=== PATIENT | female | born 1965 | race African-American/Black ===

== ENCOUNTER 2021-08-27 11:24 | Inpatient (IN) | payer OTHER, MEDICAID ==
[~2021-08-27] VITALS: Ht 162.6 cm; Wt 61.2 kg
[2021-08-27] MEDS ORDERED: CLINDAMYCIN 600 MG in DEXTROSE 5% WATER 50 ML IV ONE (13:15)
[2021-08-27] MEDS ORDERED: VANCOMYCIN 1G PREMIX 200 ML IV ONE (13:15)
[2021-08-27] MEDS ORDERED: SODIUM CHLORIDE 0.9% 1000ML BAG (SEPSIS BOLUS) IV ONE (13:15)
[2021-08-27] MEDS ORDERED: CLINDAMYCIN 600MG PREMIX 50 ML IV SCH (13:30)
[2021-08-27 14:01] LABS: HEMATOCRIT. 25.8 % (36.0-48.0); HEMOGLOBIN. 8.2 g/dL (12.0-16.0); MEAN CORPUSCULAR HEMOGLOBIN 30.1 pg (28.0-32.0); MEAN CORPUSCULAR VOLUME 95.2 fL (81.0-99.0); MEAN PLATELET VOLUME 8.6 fl (7.4-10.4); PLATELET 354 x1000/uL (130-400); RED BLOOD CELL COUNT 2.71 mill/uL (4.2-5.4); RED CELL DISTRIBUTION WIDTH 16.2 % (11.6-14.6)
[2021-08-27 14:07] LABS: CHLORIDE 95 mEq/L (98-107)
[2021-08-27 14:23] LABS: PLATELET ESTIMATE NORMAL
[2021-08-27] MEDS ORDERED: VANCOMYCIN 1,000 MG in DEXT 5% WATER 250 ML IV NR (15:00)
[2021-08-27] MEDS ORDERED: VANCOMYCIN 1GM PMX (XELLIA) 200 ML IV NR (15:00)
[2021-08-27] MEDS: CEFEPIME 2,000 MG in DEXT 5% WATER 100 ML IV SCH (15:44)
[2021-08-27] MEDS ORDERED: MAGNESIUM/ALUMINUM HYDROXIDE/SIMETHICONE 30ML UDC PO PRN (16:15)
[2021-08-27] MEDS ORDERED: ACETAMINOPHEN 325MG TABLET PO PRN (16:15)
[2021-08-27] MEDS ORDERED: IPRATROPIUM/ALBUTEROL 0.5-3(2.5)MG/3ML NEB NEB PRN (16:15)
[2021-08-27] MEDS ORDERED: ONDANSETRON HCL 4MG/2ML INJ IV PRN (16:15)
[2021-08-27] MEDS ORDERED: DOCUSATE SODIUM 100MG CAPSULE PO PRN (16:15)
[2021-08-27] MEDS ORDERED: GUAIFENESIN 200MG/10ML SUGAR FREE UDC PO PRN (16:15)
[2021-08-27] MEDS ORDERED: NITROGLYCERIN 0.4MG TABLET SL SL PRN (16:15)
[2021-08-27] MEDS ORDERED: CLONIDINE 0.1MG TABLET PO PRN (16:15)
[2021-08-27] MEDS ORDERED: SODIUM CHLORIDE 0.9% 1000ML BAG (SEPSIS BOLUS) IV NR (16:18)
[2021-08-27] MEDS: ACETAMINOPHEN 325MG TABLET PO PRN (16:43)
[2021-08-27] MEDS: BLOOD SUGAR DIAGNOSTIC STRIP TEST SCH ×2 (17:00→21:26)
[2021-08-27] MEDS ORDERED: SEVELAMER CARBONATE 800 MG TABLET PO SCH (17:00)
[2021-08-27] MEDS ORDERED: ENOXAPARIN 30MG/0.3ML SYR SUBCUT SCH (17:00)
[2021-08-27 18:08] LABS: FOLIC ACID (FOLATE) SERUM >20 ng/mL ng/mL (>5.38)
[2021-08-27] MEDS ORDERED: NOREPINEPHRINE 8MG/250ML PMX 250 ML IV PRN (18:15)
[2021-08-27 18:20] LABS: VITAMIN B12 SERUM >2000 pg/mL pg/mL (211-911)
[2021-08-27] MEDS ORDERED: NOREPINEPHRINE 8 MG in DEXTROSE 5% WATER 250 ML IV PRN (18:30)
[2021-08-27] MEDS: INSULIN LISPRO 100 UNITS/ML SUBCUT SCH ×2 (18:32→21:42)
[2021-08-27] MEDS ORDERED: NOREPINEPHRINE 8 MG in SODIUM CHLORIDE 0.9% 242 ML IV PRN (18:33)
[2021-08-27] MEDS: MEROPENEM 500 MG in SODIUM CHLORIDE 0.9% 50 ML IV SCH (18:42)
[2021-08-27] MEDS: SODIUM CHLORIDE 0.9% 1,000 ML IV SCH (19:10)
[2021-08-27] MEDS ORDERED: ZOLPIDEM TARTRATE 5MG TABLET PO PRN (20:00)
[2021-08-27] MEDS ORDERED: ASCORBIC ACID 500 MG TABLET PO SCH (21:00)
[2021-08-27] MEDS: EPOETIN ALFA-EPBX 4,000 UNIT/ML VIAL SUBCUT SCH (21:38)
[2021-08-27] MEDS: FAMOTIDINE 20MG TABLET PO SCH (21:39)
[2021-08-27] MEDS: TRAMADOL 50MG TABLET PO PRN (21:39)
[2021-08-27] MEDS: INSULIN GLARGINE UD 100 UNITS/ML SYR SUBCUT SCH (21:41)
[2021-08-27 22:05] LABS: BETA HYDROXYBUTYRATE 0.1 mMol/L (0.0-0.3)
[2021-08-27 22:06] LABS: CREATINE KINASE 43 IU/L (26-192)
[2021-08-27 22:07] LABS: CREATINE KINASE MB FRACTION 5.1 ng/mL (0.5-3.6); T4 FREE 0.53 ng/dL (0.76-1.46)
[2021-08-28] VITALS (12 sets, daily range): BP systolic 111–155; BP diastolic 65–85
[2021-08-28] MEDS: CEFEPIME 2,000 MG in DEXT 5% WATER 100 ML IV SCH (01:57)
[2021-08-28 05:34] LABS: CHLORIDE 97 mEq/L (98-107)
[2021-08-28 05:42] LABS: PHOSPHORUS 6.8 mg/dL (2.5-4.9)
[2021-08-28 05:46] LABS: CREATINE KINASE 45 IU/L (26-192)
[2021-08-28 05:47] LABS: CREATINE KINASE MB FRACTION 6.3 ng/mL (0.5-3.6)
[2021-08-28 05:52] LABS: BASOPHILS % 0.3 % (0.0-2.0); EOSINOPHILS % 0.1 % (0.0-5.0); HEMATOCRIT. 29.4 % (36.0-48.0); HEMOGLOBIN. 9.5 g/dL (12.0-16.0); LYMPHOCYTES % 8.4 % (20.0-50.0); MEAN CORPUSCULAR HEMOGLOBIN 30.5 pg (28.0-32.0); MEAN CORPUSCULAR VOLUME 94.5 fL (81.0-99.0); MEAN PLATELET VOLUME 8.5 fl (7.4-10.4); MONOCYTES % 3.4 % (2.0-8.0); NEUTROPHILS % 87.8 % (40.0-76.0); PLATELET 443 x1000/uL (130-400); RED BLOOD CELL COUNT 3.11 mill/uL (4.2-5.4); RED CELL DISTRIBUTION WIDTH 16.2 % (11.6-14.6)
[2021-08-28] MEDS: TRAMADOL 50MG TABLET PO PRN (06:08)
[2021-08-28] MEDS: MEROPENEM 500 MG in SODIUM CHLORIDE 0.9% 50 ML IV SCH ×2 (06:55→23:51)
[2021-08-28] MEDS: INSULIN LISPRO 100 UNITS/ML SUBCUT SCH ×3 (07:00→23:52)
[2021-08-28] MEDS: BLOOD SUGAR DIAGNOSTIC STRIP TEST SCH ×3 (07:10→23:46)
[2021-08-28] MEDS: SODIUM CHLORIDE 0.9% 1,000 ML IV SCH (09:00)
[2021-08-28] MEDS: ACETAMINOPHEN 325MG TABLET PO PRN (09:04)
[2021-08-28] MEDS: CHOLECALCIFEROL (D3) 1000 UNIT TABLET PO SCH (09:05)
[2021-08-28] MEDS: ZINC SULFATE 220 MG ( 50 ) CAPSULE PO SCH (09:06)
[2021-08-28] MEDS: FOLIC ACID/VITAMIN B COMP W-C TABLET PO SCH (09:06)
[2021-08-28] MEDS ORDERED: LIDOCAINE HCL 1% 20ML VIAL (Pyxis) INJ INFIL NR (10:00)
[2021-08-28] MEDS ORDERED: BUPIVACAINE HCL/PF 0.25% (2.5MG/ML) 10ML INFIL NR (10:00)
[2021-08-28] MEDS ORDERED: LORAZEPAM 2MG/ML CPJ IV NR (12:45)
[2021-08-28] MEDS ORDERED: HALOPERIDOL LACTATE 5MG/ML VIAL IM PRN (12:45)
[2021-08-28] MEDS: ENOXAPARIN 60MG/0.6ML SYR SUBCUT SCH (12:47)
[2021-08-28] MEDS: FAMOTIDINE 20MG TABLET PO SCH (12:48)
[2021-08-28] MEDS ORDERED: LIDOCAINE HCL 1% 20ML VIAL (Pyxis) INJ ONE (14:39)
[2021-08-28] MEDS ORDERED: BACITRACIN 15GM TUBE TOP ONE (14:39)
[2021-08-28] MEDS ORDERED: BUPIVACAINE HCL/PF 0.5% (5MG/ML) 10ML ONE (14:39)
[2021-08-28] MEDS ORDERED: VANCOMYCIN HCL 1 GM/VIAL ONE (14:40)
[2021-08-28] MEDS ORDERED: POLYMYXIN B SULFATE 500000 UNITS/VIAL ONE (14:40)
[2021-08-28] MEDS ORDERED: CALCIUM GLUCONATE 1,000 MG in DEXT 5% WATER 90 ML IV ONE (14:45)
[2021-08-28] MEDS ORDERED: PHENYLEPHRINE 50 MG in DEXTROSE 5% WATER 250 ML IV PRN (14:45)
[2021-08-28] MEDS ORDERED: ROCURONIUM BROMIDE 10MG/ML VIAL 5ML IV ONE (14:55)
[2021-08-28] MEDS ORDERED: FENTANYL CITRATE/PF 50MCG/ML 2ML VIAL ONE (14:55)
[2021-08-28] MEDS ORDERED: NEOSTIGMINE METHYLSULFATE 1MG/ML 10 ML VIAL ONE (14:56)
[2021-08-28] MEDS ORDERED: PROPOFOL 200MG/20ML VIAL IV ONE (14:56)
[2021-08-28] MEDS ORDERED: MIDAZOLAM HCL 2 MG/2 ML VIAL ONE (14:56)
[2021-08-28] MEDS ORDERED: GLYCOPYRROLATE 0.2 MG/ML 2ML VIAL ONE (14:56)
[2021-08-28] MEDS ORDERED: PHENYLEPHRINE 100 MG in DEXT 5% WATER 250 ML IV PRN (15:00)
[2021-08-28] MEDS ORDERED: CALCIUM GLUCONATE 1GM PREMIX 50 ML IV NR (15:00)
[2021-08-28] MEDS ORDERED: ALBUMIN HUMAN 12.5G/250ML (5%) IV ONE (15:01)
[2021-08-28] MEDS ORDERED: DEXAMETHASONE 4MG/ML 1ML VIAL ONE (15:03)
[2021-08-28] MEDS ORDERED: ONDANSETRON HCL 4MG/2ML INJ ONE (15:03)
[2021-08-28 15:55] LABS: BASOPHILS % 0.1 % (0.0-2.0); EOSINOPHILS % 0.2 % (0.0-5.0); HEMATOCRIT. 26.8 % (36.0-48.0); HEMOGLOBIN. 8.6 g/dL (12.0-16.0); LYMPHOCYTES % 9.4 % (20.0-50.0); MEAN CORPUSCULAR HEMOGLOBIN 30.5 pg (28.0-32.0); MEAN CORPUSCULAR VOLUME 94.6 fL (81.0-99.0); MEAN PLATELET VOLUME 8.3 fl (7.4-10.4); NEUTROPHILS % 87.3 % (40.0-76.0); PLATELET 449 x1000/uL (130-400); RED BLOOD CELL COUNT 2.83 mill/uL (4.2-5.4); RED CELL DISTRIBUTION WIDTH 15.9 % (11.6-14.6)
[2021-08-28 15:59] LABS: INR 1.2; PARTIAL THROMBOPLASTIN TIME 45.8 sec (23.4-31.0); PROTHROMBIN TIME 12.4 sec (9.6-11.0)
[2021-08-28] MEDS ORDERED: PROPOFOL 10MG/ML 100ML 100 ML IV ONE (15:59)
[2021-08-28] MEDS ORDERED: LEVOTHYROXINE SODIUM 100 MCG/ VIAL IV SCH (16:00)
[2021-08-28] MEDS ORDERED: HYDROMORPHONE HCL/PF 2MG/ML CPJ IV PRN (16:15)
[2021-08-28] MEDS ORDERED: LABETALOL 5MG/ML SYR 20 MG/4 ML SYRINGE IV PRN (16:15)
[2021-08-28] MEDS ORDERED: MEPERIDINE HCL/PF 25MG/ML CPJ IV PRN (16:15)
[2021-08-28] MEDS ORDERED: ONDANSETRON HCL 4MG/2ML INJ IV PRN (16:15)
[2021-08-28] MEDS: CALCIUM ACETATE 667MG CAPSULE PO SCH (17:00)
[2021-08-28] MEDS ORDERED: PROPOFOL 10MG/ML 100ML 100 ML IV PRN (17:15)
[2021-08-28] MEDS ORDERED: FENTANYL CITRATE/PF 2,500 MCG in SODIUM CHLORIDE 0.9% 200 ML IV PRN (17:30)
[2021-08-28 17:34] LABS: BG DEOXYHEMOGLOBIN 0.3 % (0.0-5.0); BG FRACTION INSPIRED OXYGEN 100; BG HCO3 ACT 14.2 mmol/L (22.0-26.0); BG METHEMOGLOBIN 0.2 % (0.0-1.5); BG OXYGEN SATURATION 99.7 % (92.0-98.5); BG OXYHEMOGLOBIN 98.5 % (94.0-97.0); BG PCO2 33.1 mmHg (35.0-45.0); BG PO2 421.8 mmHg (75.0-100.0); BG SAMPLE SITE ALINE; BG TOTAL HEMOGLOBIN 8.2 g/dL (12.0-18.0); BG VENT MODE VENT - AC
[2021-08-28] MEDS ORDERED: SODIUM BICARBONATE 8.4% 1 MEQ/ML 50ML SYR IV NR (18:15)
[2021-08-28] MEDS ORDERED: SODIUM BICARBONATE 8.4% 1 MEQ/ML 50ML SYR IV ONE (18:17)
[2021-08-28 20:33] LABS: BG BASE EXCESS -10.3 mmol/L (-2.0-2.0); BG CARBOXYHEMOGLOBIN 1.4 % (0.5-1.5); BG DEOXYHEMOGLOBIN 0.9 % (0.0-5.0); BG FRACTION INSPIRED OXYGEN 65; BG HCO3 ACT 15.1 mmol/L (22.0-26.0); BG METHEMOGLOBIN 0.3 % (0.0-1.5); BG OXYGEN SATURATION 99.1 % (92.0-98.5); BG OXYHEMOGLOBIN 97.4 % (94.0-97.0); BG PCO2 31.1 mmHg (35.0-45.0); BG PH 7.304 (7.350-7.450); BG PO2 254.6 mmHg (75.0-100.0); BG SAMPLE SITE ALINE; BG TOTAL HEMOGLOBIN 6.8 g/dL (12.0-18.0); BG VENT MODE VENT - AC
[2021-08-28] MEDS: SODIUM BICARBONATE 100 MEQ in DEXT 5%/0.45% NACL 1000ML 1,000 ML IV SCH (21:25)
[2021-08-29] VITALS (107 sets, daily range): BP systolic 53–167; BP diastolic 34–103
[2021-08-29] MEDS ORDERED: FAMOTIDINE 20MG/2ML VIAL IV SCH (00:30)
[2021-08-29] MEDS: PROPOFOL 10MG/ML 100ML 100 ML IV PRN ×2 (01:39→10:44)
[2021-08-29] MEDS: INSULIN GLARGINE UD 100 UNITS/ML SYR SUBCUT SCH (01:59)
[2021-08-29 05:30] LABS: CHLORIDE 100 mEq/L (98-107); MEAN CORPUSCULAR HEMOGLOBIN 30.5 pg (28.0-32.0); MEAN CORPUSCULAR VOLUME 93.3 fL (81.0-99.0); MEAN PLATELET VOLUME 8.2 fl (7.4-10.4); PLATELET 309 x1000/uL (130-400); RED BLOOD CELL COUNT 1.96 mill/uL (4.2-5.4); RED CELL DISTRIBUTION WIDTH 15.8 % (11.6-14.6)
[2021-08-29 05:39] LABS: PHOSPHORUS 8.5 mg/dL (2.5-4.9)
[2021-08-29 06:20] LABS: HEMATOCRIT. 18.3 % (36.0-48.0)
[2021-08-29] MEDS: BLOOD SUGAR DIAGNOSTIC STRIP TEST SCH ×3 (06:24→17:36)
[2021-08-29] MEDS: CALCIUM ACETATE 667MG CAPSULE PO SCH ×3 (06:25→16:59)
[2021-08-29] MEDS: MEROPENEM 500 MG in SODIUM CHLORIDE 0.9% 50 ML IV SCH (06:28)
[2021-08-29] MEDS: INSULIN LISPRO 100 UNITS/ML SUBCUT SCH ×3 (06:29→17:40)
[2021-08-29 08:13] LABS: INR 1.2; PROTHROMBIN TIME 12.5 sec (9.6-11.0)
[2021-08-29] MEDS: ENOXAPARIN 60MG/0.6ML SYR SUBCUT SCH (09:00)
[2021-08-29 09:27] LABS: BG BASE EXCESS -7.9 mmol/L (-2.0-2.0); BG CARBOXYHEMOGLOBIN 2.2 % (0.5-1.5); BG DEOXYHEMOGLOBIN 0.5 % (0.0-5.0); BG FRACTION INSPIRED OXYGEN 50; BG HCO3 ACT 17.2 mmol/L (22.0-26.0); BG METHEMOGLOBIN 0.3 % (0.0-1.5); BG OXYGEN SATURATION 99.5 % (92.0-98.5); BG PCO2 32.9 mmHg (35.0-45.0); BG PH 7.336 (7.350-7.450); BG PO2 277.7 mmHg (75.0-100.0); BG TOTAL HEMOGLOBIN 6.2 g/dL (12.0-18.0); BG VENT MODE VENT - AC
[2021-08-29] MEDS ORDERED: NALOXONE HCL 0.4MG/ML VIAL IV PRN (09:30)
[2021-08-29] MEDS ORDERED: SILVER NITRATE APPLICATOR STICK TOP SCH (10:30)
[2021-08-29 12:47] LABS: PLATELET ESTIMATE NORMAL
[2021-08-29] MEDS: LEVOTHYROXINE SODIUM 25MCG TABLET PO SCH (13:08)
[2021-08-29] MEDS: ZINC SULFATE 220 MG ( 50 ) CAPSULE PO SCH (13:09)
[2021-08-29] MEDS: CHOLECALCIFEROL (D3) 1000 UNIT TABLET PO SCH (13:09)
[2021-08-29] MEDS: FOLIC ACID/VITAMIN B COMP W-C TABLET PO SCH (13:09)
[2021-08-29] MEDS: SODIUM BICARBONATE 100 MEQ in DEXT 5%/0.45% NACL 1000ML 1,000 ML IV SCH ×2 (13:10→21:20)
[2021-08-29 17:29] LABS: HEMATOCRIT 27.7 % (36.0-48.0); HEMOGLOBIN 9.2 g/dL (12.0-16.0)
[2021-08-29] MEDS ORDERED: VANCOMYCIN 750MG PREMIX 150 ML IV NR (18:00)
[2021-08-29] MEDS ORDERED: INSULIN GLARGINE UD 100 UNITS/ML SYR SUBCUT SCH (22:00)
[2021-08-29] MEDS ORDERED: NOREPINEPHRINE 8 MG in DEXT 5% WATER 242 ML IV PRN (23:00)
[2021-08-29] MEDS: EPOETIN ALFA-EPBX 4,000 UNIT/ML VIAL SUBCUT SCH (23:52)
[2021-08-30] VITALS (98 sets, daily range): BP systolic 74–176; BP diastolic 26–139
[2021-08-30] MEDS: BLOOD SUGAR DIAGNOSTIC STRIP TEST SCH ×4 (00:03→17:39)
[2021-08-30] MEDS: INSULIN LISPRO 100 UNITS/ML SUBCUT SCH ×4 (00:03→17:39)
[2021-08-30 04:46] LABS: HEMATOCRIT. 25.6 % (36.0-48.0); HEMOGLOBIN. 8.7 g/dL (12.0-16.0); MEAN CORPUSCULAR HEMOGLOBIN 29.9 pg (28.0-32.0); MEAN CORPUSCULAR VOLUME 87.7 fL (81.0-99.0); MEAN PLATELET VOLUME 8.4 fl (7.4-10.4); PLATELET 279 x1000/uL (130-400); RED BLOOD CELL COUNT 2.92 mill/uL (4.2-5.4); RED CELL DISTRIBUTION WIDTH 16.3 % (11.6-14.6)
[2021-08-30 05:07] LABS: CHLORIDE 114 mEq/L (98-107)
[2021-08-30] MEDS ORDERED: POTASSIUM CHLORIDE 20MEQ/PACKET PO SCH (06:05)
[2021-08-30] MEDS ORDERED: CALCIUM GLUCONATE 1GM PREMIX 50 ML IV SCH (06:15)
[2021-08-30] MEDS ORDERED: KCL 20MEQ/100ML PREMIX 100 ML IV SCH ×2 (06:15→07:15)
[2021-08-30] MEDS: CALCIUM ACETATE 667MG CAPSULE PO SCH ×3 (06:30→16:15)
[2021-08-30] MEDS: LEVOTHYROXINE SODIUM 25MCG TABLET PO SCH (06:30)
[2021-08-30] MEDS: MEROPENEM 500 MG in SODIUM CHLORIDE 0.9% 50 ML IV SCH (06:31)
[2021-08-30] MEDS: PROPOFOL 10MG/ML 100ML 100 ML IV PRN ×2 (08:11→23:44)
[2021-08-30] MEDS ORDERED: FAMOTIDINE 20MG/2ML VIAL IV SCH (09:00)
[2021-08-30] MEDS ORDERED: FAMOTIDINE 20MG TABLET NG SCH (09:00)
[2021-08-30] MEDS: ZINC SULFATE 220 MG ( 50 ) CAPSULE PO SCH (09:15)
[2021-08-30] MEDS: DEXT 5%/0.45% NACL 1000ML 1,000 ML IV SCH (09:15)
[2021-08-30] MEDS: FOLIC ACID/VITAMIN B COMP W-C TABLET PO SCH (09:15)
[2021-08-30 09:28] LABS: BG BASE EXCESS -2.9 mmol/L (-2.0-2.0); BG CARBOXYHEMOGLOBIN 0.7 % (0.5-1.5); BG DEOXYHEMOGLOBIN 1.1 % (0.0-5.0); BG FRACTION INSPIRED OXYGEN 40; BG HCO3 ACT 20.5 mmol/L (22.0-26.0); BG OXYGEN SATURATION 98.9 % (92.0-98.5); BG OXYHEMOGLOBIN 98.2 % (94.0-97.0); BG PCO2 29.6 mmHg (35.0-45.0); BG PH 7.458 (7.350-7.450); BG PO2 222.2 mmHg (75.0-100.0); BG SAMPLE SITE ALINE; BG TOTAL HEMOGLOBIN 7.9 g/dL (12.0-18.0); BG VENT MODE VENT - AC
[2021-08-30] MEDS: CHOLECALCIFEROL (D3) 1000 UNIT TABLET PO SCH (09:52)
[2021-08-30] MEDS ORDERED: CALCITRIOL 0.25MCG CAPSULE PO SCH (10:00)
[2021-08-30] MEDS: DEXTROSE 50% WATER 50ML SYRINGE IV PRN ×2 (11:37→17:39)
[2021-08-30] MEDS: CALCITRIOL 1 MCG/ML ORAL SYR NG SCH (11:38)
[2021-08-30 14:00] LABS: PLATELET ESTIMATE NORMAL
[2021-08-30 14:47] LABS: BG BASE EXCESS -3.5 mmol/L (-2.0-2.0); BG CARBOXYHEMOGLOBIN 0.3 % (0.5-1.5); BG DEOXYHEMOGLOBIN 1.1 % (0.0-5.0); BG FRACTION INSPIRED OXYGEN 30; BG HCO3 ACT 21.3 mmol/L (22.0-26.0); BG METHEMOGLOBIN 0.3 % (0.0-1.5); BG OXYGEN SATURATION 98.9 % (92.0-98.5); BG OXYHEMOGLOBIN 98.3 % (94.0-97.0); BG PCO2 37.4 mmHg (35.0-45.0); BG PH 7.374 (7.350-7.450); BG PO2 191.4 mmHg (75.0-100.0); BG SAMPLE SITE RIGHT RADIAL; BG TOTAL HEMOGLOBIN 9.4 g/dL (12.0-18.0); BG VENT MODE VENT - SIMV
[2021-08-30] MEDS: ENOXAPARIN 60MG/0.6ML SYR SUBCUT SCH (16:15)
[2021-08-30] MEDS ORDERED: SODIUM BICARBONATE 8.4% 1 MEQ/ML 50ML SYR IV NR (18:00)
[2021-08-30] MEDS ORDERED: INSULIN GLARGINE UD 100 UNITS/ML SYR SUBCUT SCH (22:00)
[2021-08-30] MEDS ORDERED: FAMOTIDINE 20MG TABLET PO NR (23:00)
[2021-08-31] VITALS (85 sets, daily range): BP systolic 82–201; BP diastolic 36–150
[2021-08-31] MEDS: BLOOD SUGAR DIAGNOSTIC STRIP TEST SCH ×4 (00:22→18:09)
[2021-08-31 05:56] LABS: BASOPHILS % 0.3 % (0.0-2.0); EOSINOPHILS % 2.2 % (0.0-5.0); HEMATOCRIT. 24.4 % (36.0-48.0); HEMOGLOBIN. 8.3 g/dL (12.0-16.0); LYMPHOCYTES % 13.2 % (20.0-50.0); MEAN CORPUSCULAR HEMOGLOBIN 29.9 pg (28.0-32.0); MEAN CORPUSCULAR VOLUME 88.6 fL (81.0-99.0); MEAN PLATELET VOLUME 8.9 fl (7.4-10.4); MONOCYTES % 5.4 % (2.0-8.0); NEUTROPHILS % 78.9 % (40.0-76.0); PLATELET 272 x1000/uL (130-400); RED BLOOD CELL COUNT 2.76 mill/uL (4.2-5.4); RED CELL DISTRIBUTION WIDTH 17.1 % (11.6-14.6)
[2021-08-31] MEDS: CALCIUM ACETATE 667MG CAPSULE PO SCH ×3 (06:13→17:04)
[2021-08-31] MEDS: LEVOTHYROXINE SODIUM 25MCG TABLET PO SCH (06:13)
[2021-08-31] MEDS: INSULIN LISPRO 100 UNITS/ML SUBCUT SCH ×4 (06:15→18:00)
[2021-08-31] MEDS: DEXT 5%/0.45% NACL 1000ML 1,000 ML IV SCH (06:15)
[2021-08-31 06:23] LABS: PHOSPHORUS 5.3 mg/dL (2.5-4.9)
[2021-08-31] MEDS ORDERED: PROPOFOL 10MG/ML 100ML 100 ML IV PRN (06:45)
[2021-08-31] MEDS: FOLIC ACID/VITAMIN B COMP W-C TABLET PO SCH (08:05)
[2021-08-31] MEDS: ZINC SULFATE 220 MG ( 50 ) CAPSULE PO SCH (08:05)
[2021-08-31] MEDS: MEROPENEM 500 MG in SODIUM CHLORIDE 0.9% 50 ML IV SCH (08:05)
[2021-08-31] MEDS: CALCITRIOL 1 MCG/ML ORAL SYR NG SCH (08:05)
[2021-08-31] MEDS: CHOLECALCIFEROL (D3) 1000 UNIT TABLET PO SCH (08:05)
[2021-08-31] MEDS: FAMOTIDINE 20MG TABLET NG SCH (08:05)
[2021-08-31] MEDS ORDERED: CALCIUM GLUCONATE 1,000 MG in DEXT 5% WATER 90 ML IV ONE (08:30)
[2021-08-31 08:39] LABS: BG BASE EXCESS -0.1 mmol/L (-2.0-2.0); BG CARBOXYHEMOGLOBIN 0.7 % (0.5-1.5); BG DEOXYHEMOGLOBIN 1.3 % (0.0-5.0); BG FRACTION INSPIRED OXYGEN 30; BG HCO3 ACT 24.6 mmol/L (22.0-26.0); BG METHEMOGLOBIN 0.3 % (0.0-1.5); BG OXYGEN SATURATION 98.7 % (92.0-98.5); BG OXYHEMOGLOBIN 97.7 % (94.0-97.0); BG PCO2 40.7 mmHg (35.0-45.0); BG PO2 158.9 mmHg (75.0-100.0); BG SAMPLE SITE RIGHT BRACHIAL; BG TOTAL HEMOGLOBIN 8.9 g/dL (12.0-18.0); BG TOTAL RESPIRATORY RATE 14 b/min; BG VENT MODE VENT - AC
[2021-08-31] MEDS ORDERED: CALCIUM GLUCONATE 1GM PREMIX 50 ML IV SCH (09:30)
[2021-08-31 13:09] LABS: BG BASE EXCESS -0.2 mmol/L (-2.0-2.0); BG CARBOXYHEMOGLOBIN 0.6 % (0.5-1.5); BG DEOXYHEMOGLOBIN 2.5 % (0.0-5.0); BG FRACTION INSPIRED OXYGEN 30; BG HCO3 ACT 22.9 mmol/L (22.0-26.0); BG METHEMOGLOBIN 0.3 % (0.0-1.5); BG OXYGEN SATURATION 97.5 % (92.0-98.5); BG OXYHEMOGLOBIN 96.6 % (94.0-97.0); BG PCO2 32.1 mmHg (35.0-45.0); BG PH 7.472 (7.350-7.450); BG PO2 102.6 mmHg (75.0-100.0); BG SAMPLE SITE RIGHT BRACHIAL; BG TOTAL HEMOGLOBIN 10.2 g/dL (12.0-18.0); BG VENT MODE VENT - CPAP
[2021-08-31 15:31] LABS: BG BASE EXCESS -0.8 mmol/L (-2.0-2.0); BG CARBOXYHEMOGLOBIN 0.2 % (0.5-1.5); BG DEOXYHEMOGLOBIN 1.1 % (0.0-5.0); BG FRACTION INSPIRED OXYGEN 32; BG HCO3 ACT 22.6 mmol/L (22.0-26.0); BG METHEMOGLOBIN 0.1 % (0.0-1.5); BG OXYGEN SATURATION 98.9 % (92.0-98.5); BG OXYHEMOGLOBIN 98.6 % (94.0-97.0); BG PCO2 32.8 mmHg (35.0-45.0); BG PH 7.457 (7.350-7.450); BG PO2 177.3 mmHg (75.0-100.0); BG SAMPLE SITE RIGHT BRACHIAL; BG TOTAL HEMOGLOBIN 9.8 g/dL (12.0-18.0); BG VENT MODE NASAL CANNULA
[2021-08-31] MEDS: ENOXAPARIN 60MG/0.6ML SYR SUBCUT SCH (17:04)
[2021-08-31] MEDS: INSULIN GLARGINE UD 100 UNITS/ML SYR SUBCUT SCH (23:00)
[2021-09-01] VITALS (44 sets, daily range): BP systolic 119–167; BP diastolic 58–103
[2021-09-01] MEDS: BLOOD SUGAR DIAGNOSTIC STRIP TEST SCH ×5 (00:11→23:39)
[2021-09-01] MEDS: INSULIN LISPRO 100 UNITS/ML SUBCUT SCH ×5 (00:19→23:50)
[2021-09-01 06:17] LABS: BASOPHILS % 0.5 % (0.0-2.0); HEMOGLOBIN. 8.6 g/dL (12.0-16.0); LYMPHOCYTES % 13.1 % (20.0-50.0); MEAN CORPUSCULAR HEMOGLOBIN 29.7 pg (28.0-32.0); MEAN PLATELET VOLUME 8.8 fl (7.4-10.4); MONOCYTES % 6.3 % (2.0-8.0); NEUTROPHILS % 79.1 % (40.0-76.0); PLATELET 282 x1000/uL (130-400); RED BLOOD CELL COUNT 2.89 mill/uL (4.2-5.4); RED CELL DISTRIBUTION WIDTH 16.7 % (11.6-14.6)
[2021-09-01 06:45] LABS: PHOSPHORUS 5.5 mg/dL (2.5-4.9)
[2021-09-01] MEDS: LEVOTHYROXINE SODIUM 25MCG TABLET PO SCH (07:23)
[2021-09-01] MEDS: CALCIUM ACETATE 667MG CAPSULE PO SCH ×3 (07:23→16:56)
[2021-09-01] MEDS: MEROPENEM 500 MG in SODIUM CHLORIDE 0.9% 50 ML IV SCH (08:59)
[2021-09-01] MEDS: FOLIC ACID/VITAMIN B COMP W-C TABLET PO SCH (09:00)
[2021-09-01] MEDS: CHOLECALCIFEROL (D3) 1000 UNIT TABLET PO SCH (09:00)
[2021-09-01] MEDS: ZINC SULFATE 220 MG ( 50 ) CAPSULE PO SCH (09:01)
[2021-09-01] MEDS: FAMOTIDINE 20MG TABLET NG SCH (09:01)
[2021-09-01] MEDS: CALCITRIOL 1 MCG/ML ORAL SYR NG SCH (09:04)
[2021-09-01] MEDS: DEXTROSE 50% WATER 50ML SYRINGE IV PRN (11:47)
[2021-09-01] MEDS: CLOPIDOGREL 75MG TABLET PO SCH (11:48)
[2021-09-01] MEDS: ENOXAPARIN 60MG/0.6ML SYR SUBCUT SCH (16:56)
[2021-09-01] MEDS: EPOETIN ALFA-EPBX 4,000 UNIT/ML VIAL SUBCUT SCH (21:50)
[2021-09-01] MEDS: BACITRACIN 15GM TUBE TOP SCH (23:00)
[2021-09-01] MEDS: INSULIN GLARGINE UD 100 UNITS/ML SYR SUBCUT SCH (23:00)
[2021-09-02] VITALS (50 sets, daily range): BP systolic 98–165; BP diastolic 54–88
[2021-09-02] MEDS: INSULIN LISPRO 100 UNITS/ML SUBCUT SCH ×4 (06:00→23:15)
[2021-09-02 06:24] LABS: BASOPHILS % 0.3 % (0.0-2.0); EOSINOPHILS % 0.7 % (0.0-5.0); HEMATOCRIT. 25.3 % (36.0-48.0); HEMOGLOBIN. 8.2 g/dL (12.0-16.0); LYMPHOCYTES % 14.1 % (20.0-50.0); MEAN CORPUSCULAR HEMOGLOBIN 29.4 pg (28.0-32.0); MEAN PLATELET VOLUME 8.6 fl (7.4-10.4); MONOCYTES % 6.4 % (2.0-8.0); NEUTROPHILS % 78.5 % (40.0-76.0); PLATELET 292 x1000/uL (130-400); RED BLOOD CELL COUNT 2.81 mill/uL (4.2-5.4); RED CELL DISTRIBUTION WIDTH 17.3 % (11.6-14.6)
[2021-09-02] MEDS: BLOOD SUGAR DIAGNOSTIC STRIP TEST SCH ×4 (06:43→23:03)
[2021-09-02 06:45] LABS: CHLORIDE 100 mEq/L (98-107)
[2021-09-02] MEDS: CALCIUM ACETATE 667MG CAPSULE PO SCH (06:51)
[2021-09-02] MEDS: LEVOTHYROXINE SODIUM 25MCG TABLET PO SCH (06:51)
[2021-09-02 06:57] LABS: PHOSPHORUS 4.9 mg/dL (2.5-4.9)
[2021-09-02] MEDS: BACITRACIN 15GM TUBE TOP SCH ×2 (09:00→21:23)
[2021-09-02] MEDS: ZINC SULFATE 220 MG ( 50 ) CAPSULE PO SCH (09:13)
[2021-09-02] MEDS: CHOLECALCIFEROL (D3) 1000 UNIT TABLET PO SCH (09:13)
[2021-09-02] MEDS: CALCITRIOL 1 MCG/ML ORAL SYR NG SCH (09:14)
[2021-09-02] MEDS: FOLIC ACID/VITAMIN B COMP W-C TABLET PO SCH (09:14)
[2021-09-02] MEDS: CLOPIDOGREL 75MG TABLET PO SCH (09:14)
[2021-09-02] MEDS: FAMOTIDINE 20MG TABLET NG SCH (09:14)
[2021-09-02] MEDS: CALCIUM CARBONATE 500MG TABLET CHEW PO SCH ×2 (13:19→16:38)
[2021-09-02] MEDS: ENOXAPARIN 60MG/0.6ML SYR SUBCUT SCH (16:39)
[2021-09-02] MEDS ORDERED: MORPHINE SULFATE 2 MG/ML CPJ (NOT FOR IM USE) IV ONE (18:15)
[2021-09-02] MEDS ORDERED: FENTANYL 2500MCG/250ML PMX 250 ML IV PRN (18:15)
[2021-09-02] MEDS: EPOETIN ALFA-EPBX 4,000 UNIT/ML VIAL SUBCUT SCH (21:23)
[2021-09-02] MEDS: INSULIN GLARGINE UD 100 UNITS/ML SYR SUBCUT SCH (23:14)
[2021-09-03] VITALS (30 sets, daily range): BP systolic 114–155; BP diastolic 59–85
[2021-09-03] MEDS: INSULIN LISPRO 100 UNITS/ML SUBCUT SCH ×3 (05:39→17:54)
[2021-09-03] MEDS: BLOOD SUGAR DIAGNOSTIC STRIP TEST SCH ×3 (05:39→17:32)
[2021-09-03 05:50] LABS: BASOPHILS % 0.6 % (0.0-2.0); EOSINOPHILS % 1.6 % (0.0-5.0); HEMATOCRIT. 23.4 % (36.0-48.0); HEMOGLOBIN. 7.8 g/dL (12.0-16.0); LYMPHOCYTES % 19.1 % (20.0-50.0); MEAN CORPUSCULAR VOLUME 90.5 fL (81.0-99.0); MEAN PLATELET VOLUME 8.3 fl (7.4-10.4); MONOCYTES % 8.2 % (2.0-8.0); NEUTROPHILS % 70.5 % (40.0-76.0); PLATELET 252 x1000/uL (130-400); RED BLOOD CELL COUNT 2.58 mill/uL (4.2-5.4); RED CELL DISTRIBUTION WIDTH 16.6 % (11.6-14.6)
[2021-09-03 06:00] LABS: CHLORIDE 99 mEq/L (98-107)
[2021-09-03 06:08] LABS: PHOSPHORUS 4.7 mg/dL (2.5-4.9)
[2021-09-03] MEDS: LEVOTHYROXINE SODIUM 25MCG TABLET PO SCH (06:22)
[2021-09-03] MEDS: CALCIUM CARBONATE 500MG TABLET CHEW PO SCH ×4 (06:22→16:02)
[2021-09-03] MEDS: ZINC SULFATE 220 MG ( 50 ) CAPSULE PO SCH (08:21)
[2021-09-03] MEDS: CHOLECALCIFEROL (D3) 1000 UNIT TABLET PO SCH (08:21)
[2021-09-03] MEDS: CLOPIDOGREL 75MG TABLET PO SCH (08:21)
[2021-09-03] MEDS: FAMOTIDINE 20MG TABLET NG SCH (08:21)
[2021-09-03] MEDS: FOLIC ACID/VITAMIN B COMP W-C TABLET PO SCH (08:21)
[2021-09-03] MEDS: CALCITRIOL 1 MCG/ML ORAL SYR NG SCH (08:21)
[2021-09-03] MEDS: BACITRACIN 15GM TUBE TOP SCH ×2 (08:24→21:29)
[2021-09-03] MEDS: ACETAMINOPHEN 325MG TABLET PO PRN ×2 (10:03→15:58)
[2021-09-03] MEDS: SODIUM HYPOCHLORITE (0.25%) 480ML SOLUTION (HALF STRENGTH) TOP SCH (11:21)
[2021-09-03] MEDS ORDERED: IOHEXOL-350 100 ML BOTTLE ONE (15:22)
[2021-09-03] MEDS: ENOXAPARIN 60MG/0.6ML SYR SUBCUT SCH (15:59)
[2021-09-03] MEDS: INSULIN GLARGINE UD 100 UNITS/ML SYR SUBCUT SCH (21:36)
[2021-09-04] VITALS: BP 151/75
[2021-09-04] MEDS: ACETAMINOPHEN 325MG TABLET PO PRN ×2 (01:32→16:03)
[2021-09-04] MEDS: INSULIN LISPRO 100 UNITS/ML SUBCUT SCH ×5 (01:40→20:56)
[2021-09-04 04:00] VITALS: BP 119/54
[2021-09-04] MEDS: DEXTROSE 50% WATER 50ML SYRINGE IV PRN (05:31)
[2021-09-04] MEDS: BLOOD SUGAR DIAGNOSTIC STRIP TEST SCH ×5 (06:33→20:55)
[2021-09-04] MEDS: CALCIUM CARBONATE 500MG TABLET CHEW PO SCH ×3 (06:34→17:15)
[2021-09-04 07:46] LABS: BASOPHILS % 0.7 % (0.0-2.0); HEMATOCRIT. 24.8 % (36.0-48.0); HEMOGLOBIN. 8.2 g/dL (12.0-16.0); LYMPHOCYTES % 14.6 % (20.0-50.0); MEAN CORPUSCULAR VOLUME 90.5 fL (81.0-99.0); MEAN PLATELET VOLUME 8.4 fl (7.4-10.4); MONOCYTES % 7.7 % (2.0-8.0); PLATELET 287 x1000/uL (130-400); RED BLOOD CELL COUNT 2.74 mill/uL (4.2-5.4); RED CELL DISTRIBUTION WIDTH 16.6 % (11.6-14.6)
[2021-09-04 07:58] LABS: PHOSPHORUS 4.7 mg/dL (2.5-4.9)
[2021-09-04] MEDS: CALCITRIOL 1 MCG/ML ORAL SYR NG SCH (09:00)
[2021-09-04] MEDS: FOLIC ACID/VITAMIN B COMP W-C TABLET PO SCH (09:53)
[2021-09-04] MEDS: CHOLECALCIFEROL (D3) 1000 UNIT TABLET PO SCH (09:53)
[2021-09-04] MEDS: CLOPIDOGREL 75MG TABLET PO SCH (09:53)
[2021-09-04] MEDS: FAMOTIDINE 20MG TABLET NG SCH (09:53)
[2021-09-04] MEDS: ZINC SULFATE 220 MG ( 50 ) CAPSULE PO SCH (09:53)
[2021-09-04] MEDS: BACITRACIN 15GM TUBE TOP SCH ×2 (09:54→20:55)
[2021-09-04] MEDS: SODIUM HYPOCHLORITE (0.25%) 480ML SOLUTION (HALF STRENGTH) TOP SCH (09:54)
[2021-09-04] MEDS ORDERED: POTASSIUM CHLORIDE 20MEQ TABLET SR PO NR (11:00)
[2021-09-04] MEDS: LEVOTHYROXINE SODIUM 25MCG TABLET PO SCH (11:27)
[2021-09-04 12:00] VITALS: BP 173/83
[2021-09-04 16:00] VITALS: BP 139/71
[2021-09-04] MEDS: ENOXAPARIN 60MG/0.6ML SYR SUBCUT SCH (16:02)
[2021-09-04 20:00] VITALS: BP 145/79
[2021-09-04] MEDS: HYDROCODONE/ACETAMINOPHEN 5/325MG TABLET PO PRN (20:55)
[2021-09-04] MEDS: EPOETIN ALFA-EPBX 4,000 UNIT/ML VIAL SUBCUT SCH (20:55)
[2021-09-05] VITALS: BP 140/67
[2021-09-05 04:00] VITALS: BP 146/70
[2021-09-05] MEDS: HYDROCODONE/ACETAMINOPHEN 5/325MG TABLET PO PRN ×3 (04:40→18:23)
[2021-09-05] MEDS: CALCIUM CARBONATE 500MG TABLET CHEW PO SCH ×3 (06:27→17:35)
[2021-09-05] MEDS: LEVOTHYROXINE SODIUM 25MCG TABLET PO SCH (06:27)
[2021-09-05] MEDS: INSULIN LISPRO 100 UNITS/ML SUBCUT SCH ×4 (06:28→21:01)
[2021-09-05] MEDS: BLOOD SUGAR DIAGNOSTIC STRIP TEST SCH ×4 (06:29→21:02)
[2021-09-05 08:00] VITALS: BP 134/63
[2021-09-05 08:23] LABS: BASOPHILS % 0.7 % (0.0-2.0); EOSINOPHILS % 1.8 % (0.0-5.0); HEMOGLOBIN. 8.4 g/dL (12.0-16.0); LYMPHOCYTES % 19.9 % (20.0-50.0); MEAN CORPUSCULAR HEMOGLOBIN 30.4 pg (28.0-32.0); MEAN CORPUSCULAR VOLUME 90.9 fL (81.0-99.0); MEAN PLATELET VOLUME 8.2 fl (7.4-10.4); MONOCYTES % 8.4 % (2.0-8.0); NEUTROPHILS % 69.2 % (40.0-76.0); PLATELET 250 x1000/uL (130-400); RED BLOOD CELL COUNT 2.75 mill/uL (4.2-5.4)
[2021-09-05 08:57] LABS: PHOSPHORUS 4.7 mg/dL (2.5-4.9)
[2021-09-05] MEDS: CLOPIDOGREL 75MG TABLET PO SCH (09:53)
[2021-09-05] MEDS: FOLIC ACID/VITAMIN B COMP W-C TABLET PO SCH (09:53)
[2021-09-05] MEDS: ZINC SULFATE 220 MG ( 50 ) CAPSULE PO SCH (09:53)
[2021-09-05] MEDS: CHOLECALCIFEROL (D3) 1000 UNIT TABLET PO SCH (09:53)
[2021-09-05] MEDS: FAMOTIDINE 20MG TABLET NG SCH (09:54)
[2021-09-05] MEDS: BACITRACIN 15GM TUBE TOP SCH ×2 (09:57→21:02)
[2021-09-05] MEDS: SODIUM HYPOCHLORITE (0.25%) 480ML SOLUTION (HALF STRENGTH) TOP SCH (09:58)
[2021-09-05] MEDS: CALCITRIOL 1 MCG/ML ORAL SYR NG SCH (10:03)
[2021-09-05 12:00] VITALS: BP 126/68
[2021-09-05 16:00] VITALS: BP 124/70
[2021-09-05] MEDS: ENOXAPARIN 60MG/0.6ML SYR SUBCUT SCH (17:35)
[2021-09-05 20:00] VITALS: BP 110/68
[2021-09-06] VITALS: BP 114/45
[2021-09-06] MEDS: CALCIUM CARBONATE 500MG TABLET CHEW PO SCH ×3 (06:19→17:15)
[2021-09-06] MEDS: LEVOTHYROXINE SODIUM 25MCG TABLET PO SCH (06:19)
[2021-09-06] MEDS: BLOOD SUGAR DIAGNOSTIC STRIP TEST SCH ×4 (06:20→20:08)
[2021-09-06] MEDS: INSULIN LISPRO 100 UNITS/ML SUBCUT SCH ×4 (06:20→21:11)
[2021-09-06 07:55] LABS: BASOPHILS % 0.5 % (0.0-2.0); EOSINOPHILS % 0.7 % (0.0-5.0); HEMATOCRIT. 23.4 % (36.0-48.0); HEMOGLOBIN. 7.6 g/dL (12.0-16.0); MEAN CORPUSCULAR HEMOGLOBIN 30.1 pg (28.0-32.0); MEAN CORPUSCULAR VOLUME 92.3 fL (81.0-99.0); MEAN PLATELET VOLUME 8.5 fl (7.4-10.4); NEUTROPHILS % 72.8 % (40.0-76.0); PLATELET 244 x1000/uL (130-400); RED BLOOD CELL COUNT 2.54 mill/uL (4.2-5.4); RED CELL DISTRIBUTION WIDTH 16.1 % (11.6-14.6)
[2021-09-06 08:00] VITALS: BP 117/63
[2021-09-06 08:28] LABS: PHOSPHORUS 4.7 mg/dL (2.5-4.9)
[2021-09-06] MEDS: ZINC SULFATE 220 MG ( 50 ) CAPSULE PO SCH (09:23)
[2021-09-06] MEDS: FOLIC ACID/VITAMIN B COMP W-C TABLET PO SCH (09:23)
[2021-09-06] MEDS: FAMOTIDINE 20MG TABLET NG SCH (09:23)
[2021-09-06] MEDS: CLOPIDOGREL 75MG TABLET PO SCH (09:23)
[2021-09-06] MEDS: CHOLECALCIFEROL (D3) 1000 UNIT TABLET PO SCH (09:24)
[2021-09-06] MEDS: BACITRACIN 15GM TUBE TOP SCH ×2 (09:25→21:11)
[2021-09-06] MEDS: SODIUM HYPOCHLORITE (0.25%) 480ML SOLUTION (HALF STRENGTH) TOP SCH (09:25)
[2021-09-06] MEDS: HYDROCODONE/ACETAMINOPHEN 5/325MG TABLET PO PRN ×3 (09:26→20:08)
[2021-09-06] MEDS: CALCITRIOL 1 MCG/ML ORAL SYR NG SCH (09:29)
[2021-09-06 12:00] VITALS: BP 140/68
[2021-09-06 16:00] VITALS: BP 137/66
[2021-09-06] MEDS: ENOXAPARIN 60MG/0.6ML SYR SUBCUT SCH (17:11)
[2021-09-06 20:00] VITALS: BP 124/63
[2021-09-07] VITALS: BP 119/76
[2021-09-07 04:00] VITALS: BP 119/76
[2021-09-07] MEDS: BLOOD SUGAR DIAGNOSTIC STRIP TEST SCH ×4 (06:13→21:34)
[2021-09-07] MEDS: LEVOTHYROXINE SODIUM 25MCG TABLET PO SCH (06:13)
[2021-09-07] MEDS: HYDROCODONE/ACETAMINOPHEN 5/325MG TABLET PO PRN ×4 (06:13→21:48)
[2021-09-07] MEDS: INSULIN LISPRO 100 UNITS/ML SUBCUT SCH ×4 (06:58→21:00)
[2021-09-07] MEDS: CALCIUM CARBONATE 500MG TABLET CHEW PO SCH ×3 (07:15→17:14)
[2021-09-07 07:23] LABS: BASOPHILS % 1.2 % (0.0-2.0); EOSINOPHILS % 1.3 % (0.0-5.0); HEMATOCRIT. 23.5 % (36.0-48.0); HEMOGLOBIN. 7.9 g/dL (12.0-16.0); MEAN CORPUSCULAR HEMOGLOBIN 30.5 pg (28.0-32.0); MEAN CORPUSCULAR VOLUME 91.1 fL (81.0-99.0); MEAN PLATELET VOLUME 8.5 fl (7.4-10.4); MONOCYTES % 12.5 % (2.0-8.0); PLATELET 250 x1000/uL (130-400); RED BLOOD CELL COUNT 2.58 mill/uL (4.2-5.4); RED CELL DISTRIBUTION WIDTH 16.2 % (11.6-14.6)
[2021-09-07 07:29] LABS: PHOSPHORUS 5.6 mg/dL (2.5-4.9)
[2021-09-07 08:00] VITALS: BP 155/79
[2021-09-07] MEDS: FAMOTIDINE 20MG TABLET NG SCH (09:00)
[2021-09-07] MEDS: CHOLECALCIFEROL (D3) 1000 UNIT TABLET PO SCH (09:00)
[2021-09-07] MEDS: FOLIC ACID/VITAMIN B COMP W-C TABLET PO SCH (09:00)
[2021-09-07] MEDS: CLOPIDOGREL 75MG TABLET PO SCH (09:00)
[2021-09-07] MEDS: CALCITRIOL 1 MCG/ML ORAL SYR NG SCH (09:00)
[2021-09-07] MEDS: ZINC SULFATE 220 MG ( 50 ) CAPSULE PO SCH (09:00)
[2021-09-07] MEDS: BACITRACIN 15GM TUBE TOP SCH (09:40)
[2021-09-07] MEDS: SODIUM HYPOCHLORITE (0.25%) 480ML SOLUTION (HALF STRENGTH) TOP SCH (09:40)
[2021-09-07 12:00] VITALS: BP 137/67
[2021-09-07 16:00] VITALS: BP 147/79
[2021-09-07] MEDS: ENOXAPARIN 60MG/0.6ML SYR SUBCUT SCH (16:29)
[2021-09-07 20:00] VITALS: BP 115/65
[2021-09-07] MEDS: EPOETIN ALFA-EPBX 4,000 UNIT/ML VIAL SUBCUT SCH (21:46)
[2021-09-08] VITALS: BP_SYST 136; BP_SYST 91; BP_DIAS 42; BP_DIAS 81
[2021-09-08 04:00] VITALS: BP 158/69
[2021-09-08] MEDS: HYDROCODONE/ACETAMINOPHEN 5/325MG TABLET PO PRN ×4 (05:00→22:10)
[2021-09-08] MEDS: BLOOD SUGAR DIAGNOSTIC STRIP TEST SCH ×4 (06:06→21:25)
[2021-09-08] MEDS: INSULIN LISPRO 100 UNITS/ML SUBCUT SCH ×4 (06:14→21:36)
[2021-09-08] MEDS: LEVOTHYROXINE SODIUM 25MCG TABLET PO SCH (06:14)
[2021-09-08 06:36] LABS: EOSINOPHILS % 0.9 % (0.0-5.0); HEMATOCRIT. 23.2 % (36.0-48.0); HEMOGLOBIN. 7.7 g/dL (12.0-16.0); LYMPHOCYTES % 24.5 % (20.0-50.0); MEAN CORPUSCULAR HEMOGLOBIN 30.7 pg (28.0-32.0); MEAN CORPUSCULAR VOLUME 92.5 fL (81.0-99.0); MEAN PLATELET VOLUME 8.5 fl (7.4-10.4); NEUTROPHILS % 62.6 % (40.0-76.0); PLATELET 240 x1000/uL (130-400); RED BLOOD CELL COUNT 2.51 mill/uL (4.2-5.4); RED CELL DISTRIBUTION WIDTH 16.4 % (11.6-14.6)
[2021-09-08 06:44] LABS: PHOSPHORUS 5.9 mg/dL (2.5-4.9)
[2021-09-08 08:00] VITALS: BP 112/75
[2021-09-08] MEDS: CHOLECALCIFEROL (D3) 1000 UNIT TABLET PO SCH (09:47)
[2021-09-08] MEDS: CLOPIDOGREL 75MG TABLET PO SCH (09:47)
[2021-09-08] MEDS: FOLIC ACID/VITAMIN B COMP W-C TABLET PO SCH (09:47)
[2021-09-08] MEDS: CALCIUM CARBONATE 500MG TABLET CHEW PO SCH ×3 (09:47→17:35)
[2021-09-08] MEDS: FAMOTIDINE 20MG TABLET NG SCH (09:47)
[2021-09-08] MEDS: ZINC SULFATE 220 MG ( 50 ) CAPSULE PO SCH (09:47)
[2021-09-08] MEDS: SODIUM HYPOCHLORITE (0.25%) 480ML SOLUTION (HALF STRENGTH) TOP SCH (09:48)
[2021-09-08] MEDS: BACITRACIN 15GM TUBE TOP SCH ×2 (09:49→21:37)
[2021-09-08] MEDS: CALCITRIOL 1 MCG/ML ORAL SYR NG SCH (10:46)
[2021-09-08 12:00] VITALS: BP 158/85
[2021-09-08 16:00] VITALS: BP 155/73
[2021-09-08] MEDS: ENOXAPARIN 60MG/0.6ML SYR SUBCUT SCH (17:31)
[2021-09-08] MEDS: EPOETIN ALFA-EPBX 10,000 UNIT/ML VIAL SUBCUT SCH (21:34)
[2021-09-08] MEDS ORDERED: INSULIN GLARGINE UD 100 UNITS/ML SYR SUBCUT SCH (22:00)
[2021-09-08 23:28] VITALS: BP 133/71
[2021-09-09 04:00] VITALS: BP 157/69
[2021-09-09] MEDS: BLOOD SUGAR DIAGNOSTIC STRIP TEST SCH ×3 (06:19→17:27)
[2021-09-09] MEDS: INSULIN LISPRO 100 UNITS/ML SUBCUT SCH ×3 (06:19→16:45)
[2021-09-09] MEDS: CALCIUM CARBONATE 500MG TABLET CHEW PO SCH ×3 (06:24→17:26)
[2021-09-09] MEDS: HYDROCODONE/ACETAMINOPHEN 5/325MG TABLET PO PRN ×3 (06:24→17:26)
[2021-09-09] MEDS: LEVOTHYROXINE SODIUM 25MCG TABLET PO SCH (06:24)
[2021-09-09 08:00] VITALS: BP 168/82
[2021-09-09 08:41] LABS: BASOPHILS % 0.4 % (0.0-2.0); EOSINOPHILS % 0.1 % (0.0-5.0); HEMOGLOBIN. 8.6 g/dL (12.0-16.0); LYMPHOCYTES % 14.6 % (20.0-50.0); MEAN CORPUSCULAR HEMOGLOBIN 30.3 pg (28.0-32.0); MEAN CORPUSCULAR VOLUME 92.3 fL (81.0-99.0); MEAN PLATELET VOLUME 8.1 fl (7.4-10.4); MONOCYTES % 3.2 % (2.0-8.0); NEUTROPHILS % 81.7 % (40.0-76.0); PLATELET 266 x1000/uL (130-400); RED BLOOD CELL COUNT 2.82 mill/uL (4.2-5.4)
[2021-09-09] MEDS: CLOPIDOGREL 75MG TABLET PO SCH (09:08)
[2021-09-09] MEDS: CHOLECALCIFEROL (D3) 1000 UNIT TABLET PO SCH (09:08)
[2021-09-09] MEDS: ZINC SULFATE 220 MG ( 50 ) CAPSULE PO SCH (09:08)
[2021-09-09] MEDS: FAMOTIDINE 20MG TABLET NG SCH (09:08)
[2021-09-09] MEDS: FOLIC ACID/VITAMIN B COMP W-C TABLET PO SCH (09:08)
[2021-09-09] MEDS: BACITRACIN 15GM TUBE TOP SCH ×2 (09:09→21:34)
[2021-09-09] MEDS: SODIUM HYPOCHLORITE (0.25%) 480ML SOLUTION (HALF STRENGTH) TOP SCH (09:09)
[2021-09-09 09:12] LABS: CHLORIDE 98 mEq/L (98-107)
[2021-09-09 09:19] LABS: PHOSPHORUS 5.8 mg/dL (2.5-4.9)
[2021-09-09 12:00] VITALS: BP 168/92
[2021-09-09] MEDS: CALCITRIOL 1 MCG/ML ORAL SYR NG SCH (12:35)
[2021-09-09 16:00] VITALS: BP 156/85
[2021-09-09] MEDS: ENOXAPARIN 60MG/0.6ML SYR SUBCUT SCH (17:26)
[2021-09-09 20:00] VITALS: BP 156/73
[2021-09-09] MEDS: ACETAMINOPHEN 325MG TABLET PO PRN (21:35)
[2021-09-09] MEDS: INSULIN GLARGINE UD 100 UNITS/ML SYR SUBCUT SCH (21:36)
[2021-09-10] VITALS (7 sets, daily range): BP systolic 120–153; BP diastolic 66–79
[2021-09-10] MEDS: BLOOD SUGAR DIAGNOSTIC STRIP TEST SCH ×3 (06:12→16:52)
[2021-09-10] MEDS: CALCIUM CARBONATE 500MG TABLET CHEW PO SCH ×3 (06:20→17:34)
[2021-09-10] MEDS: LEVOTHYROXINE SODIUM 25MCG TABLET PO SCH (06:20)
[2021-09-10] MEDS: INSULIN LISPRO 100 UNITS/ML SUBCUT SCH ×3 (06:21→17:35)
[2021-09-10] MEDS: HYDROCODONE/ACETAMINOPHEN 5/325MG TABLET PO PRN ×4 (09:25→22:34)
[2021-09-10] MEDS: CLOPIDOGREL 75MG TABLET PO SCH (09:25)
[2021-09-10] MEDS: FAMOTIDINE 20MG TABLET NG SCH (09:25)
[2021-09-10] MEDS: ZINC SULFATE 220 MG ( 50 ) CAPSULE PO SCH (09:25)
[2021-09-10] MEDS: CALCITRIOL 1 MCG/ML ORAL SYR NG SCH (09:25)
[2021-09-10] MEDS: CHOLECALCIFEROL (D3) 1000 UNIT TABLET PO SCH (09:25)
[2021-09-10] MEDS: FOLIC ACID/VITAMIN B COMP W-C TABLET PO SCH (09:25)
[2021-09-10] MEDS: SODIUM HYPOCHLORITE (0.25%) 480ML SOLUTION (HALF STRENGTH) TOP SCH (09:26)
[2021-09-10] MEDS: BACITRACIN 15GM TUBE TOP SCH ×2 (09:26→22:30)
[2021-09-10] MEDS: ENOXAPARIN 60MG/0.6ML SYR SUBCUT SCH (15:43)
[2021-09-10] MEDS: EPOETIN ALFA-EPBX 10,000 UNIT/ML VIAL SUBCUT SCH (22:30)
[2021-09-10] MEDS: INSULIN GLARGINE UD 100 UNITS/ML SYR SUBCUT SCH (22:31)
[2021-09-11] VITALS: BP 134/68
[2021-09-11 04:00] VITALS: BP 161/82
[2021-09-11] MEDS: INSULIN LISPRO 100 UNITS/ML SUBCUT SCH ×3 (06:45→16:34)
[2021-09-11] MEDS: BLOOD SUGAR DIAGNOSTIC STRIP TEST SCH ×3 (07:05→16:34)
[2021-09-11] MEDS: LEVOTHYROXINE SODIUM 25MCG TABLET PO SCH (07:08)
[2021-09-11] MEDS: HYDROCODONE/ACETAMINOPHEN 5/325MG TABLET PO PRN ×4 (07:09→20:05)
[2021-09-11 08:00] VITALS: BP 112/64
[2021-09-11 08:17] LABS: BASOPHILS % 1.2 % (0.0-2.0); EOSINOPHILS % 0.9 % (0.0-5.0); HEMATOCRIT. 26.4 % (36.0-48.0); HEMOGLOBIN. 8.7 g/dL (12.0-16.0); LYMPHOCYTES % 32.4 % (20.0-50.0); MEAN CORPUSCULAR HEMOGLOBIN 30.4 pg (28.0-32.0); MEAN CORPUSCULAR VOLUME 92.3 fL (81.0-99.0); MEAN PLATELET VOLUME 8.4 fl (7.4-10.4); MONOCYTES % 6.9 % (2.0-8.0); NEUTROPHILS % 58.6 % (40.0-76.0); PLATELET 266 x1000/uL (130-400); RED BLOOD CELL COUNT 2.86 mill/uL (4.2-5.4); RED CELL DISTRIBUTION WIDTH 17.9 % (11.6-14.6)
[2021-09-11 09:21] LABS: CHLORIDE 96 mEq/L (98-107)
[2021-09-11] MEDS: CALCIUM CARBONATE 500MG TABLET CHEW PO SCH ×3 (09:36→17:51)
[2021-09-11] MEDS: FAMOTIDINE 20MG TABLET NG SCH (09:37)
[2021-09-11] MEDS: FOLIC ACID/VITAMIN B COMP W-C TABLET PO SCH (09:37)
[2021-09-11] MEDS: ZINC SULFATE 220 MG ( 50 ) CAPSULE PO SCH (09:37)
[2021-09-11] MEDS: CALCITRIOL 1 MCG/ML ORAL SYR NG SCH (09:37)
[2021-09-11] MEDS: CLOPIDOGREL 75MG TABLET PO SCH (09:37)
[2021-09-11] MEDS: AMLODIPINE 2.5MG TABLET PO SCH (09:37)
[2021-09-11] MEDS: BACITRACIN 15GM TUBE TOP SCH ×2 (09:38→21:00)
[2021-09-11] MEDS: SODIUM HYPOCHLORITE (0.25%) 480ML SOLUTION (HALF STRENGTH) TOP SCH (09:38)
[2021-09-11 09:44] LABS: PHOSPHORUS 5.6 mg/dL (2.5-4.9)
[2021-09-11] MEDS: CHOLECALCIFEROL (D3) 1000 UNIT TABLET PO SCH (11:43)
[2021-09-11 12:00] VITALS: BP 148/78
[2021-09-11] MEDS ORDERED: POTASSIUM CHLORIDE 20MEQ TABLET SR PO NR (12:00)
[2021-09-11 16:00] VITALS: BP 153/69
[2021-09-11] MEDS: ENOXAPARIN 60MG/0.6ML SYR SUBCUT SCH (16:02)
[2021-09-11 20:00] VITALS: BP 129/77
[2021-09-12] VITALS (7 sets, daily range): BP systolic 119–156; BP diastolic 69–77
[2021-09-12] MEDS: HYDROCODONE/ACETAMINOPHEN 5/325MG TABLET PO PRN ×5 (00:43→20:19)
[2021-09-12] MEDS: LEVOTHYROXINE SODIUM 25MCG TABLET PO SCH (05:49)
[2021-09-12] MEDS: BLOOD SUGAR DIAGNOSTIC STRIP TEST SCH ×3 (05:50→16:45)
[2021-09-12] MEDS: INSULIN LISPRO 100 UNITS/ML SUBCUT SCH ×3 (05:50→18:01)
[2021-09-12] MEDS: ZINC SULFATE 220 MG ( 50 ) CAPSULE PO SCH (08:38)
[2021-09-12] MEDS: FOLIC ACID/VITAMIN B COMP W-C TABLET PO SCH (08:38)
[2021-09-12] MEDS: CHOLECALCIFEROL (D3) 1000 UNIT TABLET PO SCH (08:39)
[2021-09-12] MEDS: AMLODIPINE 2.5MG TABLET PO SCH (08:39)
[2021-09-12] MEDS: CALCIUM CARBONATE 500MG TABLET CHEW PO SCH ×3 (08:39→17:59)
[2021-09-12] MEDS: CLOPIDOGREL 75MG TABLET PO SCH (08:39)
[2021-09-12] MEDS: FAMOTIDINE 20MG TABLET NG SCH (08:39)
[2021-09-12] MEDS: CALCITRIOL 1 MCG/ML ORAL SYR NG SCH (08:42)
[2021-09-12] MEDS ORDERED: INSULIN GLARGINE UD 100 UNITS/ML SYR SUBCUT SCH (10:00)
[2021-09-12] MEDS ORDERED: POTASSIUM CHLORIDE 20MEQ TABLET SR PO SCH (10:45)
[2021-09-12] MEDS: SODIUM HYPOCHLORITE (0.25%) 480ML SOLUTION (HALF STRENGTH) TOP SCH (11:20)
[2021-09-12] MEDS: BACITRACIN 15GM TUBE TOP SCH ×2 (11:20→20:22)
[2021-09-12] MEDS ORDERED: NALOXONE HCL 0.4MG/ML VIAL IV PRN (17:15)
[2021-09-12] MEDS: ENOXAPARIN 60MG/0.6ML SYR SUBCUT SCH (17:59)
[2021-09-12] MEDS: EPOETIN ALFA-EPBX 10,000 UNIT/ML VIAL SUBCUT SCH (20:23)
== END 2021-09-12 21:52 | disposition short-term general hospital (02) | DRG 853 ==
LOC: ER 11:24 → MICUSO 16:38 → EDBEDREQSVC 17:05 → EDBEDREQ 17:05 → EDBEDREQTM 17:05 → CANRESERV 17:11 → ENRESERV 17:11 → EDBEDREQSVC 18:12 → MICUSO 08-28 20:50 → 5WST 09-03 17:00
PROVIDERS: ADMIT Internal Medicine; ATTEND Internal Medicine
PROC: 0Y6M0Z9 Detachment at Right Foot, Partial 1st Ray, Open Approach (ICD-10-PCS; principal; 2021-08-28)
PROC: 5A1945Z Respiratory Ventilation, 24-96 Consecutive Hours (ICD-10-PCS; 2021-08-28)
PROC: 0BH17EZ Insertion of Endotracheal Airway into Trachea, Via Natural or Artificial Opening (ICD-10-PCS; 2021-08-28)
PROC: 0JBN0ZZ Excision of Right Lower Leg Subcutaneous Tissue and Fascia, Open Approach (ICD-10-PCS; 2021-08-28)
PROC: 3E1M39Z Irrigation of Peritoneal Cavity using Dialysate, Percutaneous Approach (ICD-10-PCS; 2021-08-28)
PROC: 0Y6M0ZB Detachment at Right Foot, Partial 2nd Ray, Open Approach (ICD-10-PCS; 2021-08-28)
PROC: 0Y6M0ZC Detachment at Right Foot, Partial 3rd Ray, Open Approach (ICD-10-PCS; 2021-08-28)
PROC: 0Y6M0ZD Detachment at Right Foot, Partial 4th Ray, Open Approach (ICD-10-PCS; 2021-08-28)
PROC: 0Y6M0ZF Detachment at Right Foot, Partial 5th Ray, Open Approach (ICD-10-PCS; 2021-08-28)
PROC: 0BH17EZ Insertion of Endotracheal Airway into Trachea, Via Natural or Artificial Opening (ICD-10-PCS; 2021-08-28)
PROC: 30233N1 Transfusion of Nonautologous Red Blood Cells into Peripheral Vein, Percutaneous Approach (ICD-10-PCS; 2021-08-29)
PROC: 02HV33Z Insertion of Infusion Device into Superior Vena Cava, Percutaneous Approach (ICD-10-PCS; 2021-08-29)
PROC: B548ZZA Ultrasonography of Superior Vena Cava, Guidance (ICD-10-PCS; 2021-08-29)
PROC: 3E1M39Z Irrigation of Peritoneal Cavity using Dialysate, Percutaneous Approach (ICD-10-PCS; 2021-08-29)
PROC: 3E1M39Z Irrigation of Peritoneal Cavity using Dialysate, Percutaneous Approach (ICD-10-PCS; 2021-08-30)
PROC: 3E1M39Z Irrigation of Peritoneal Cavity using Dialysate, Percutaneous Approach (ICD-10-PCS; 2021-08-31)
PROC: 3E1M39Z Irrigation of Peritoneal Cavity using Dialysate, Percutaneous Approach (ICD-10-PCS; 2021-09-01)
PROC: 3E1M39Z Irrigation of Peritoneal Cavity using Dialysate, Percutaneous Approach (ICD-10-PCS; 2021-09-02)
PROC: 4A10X4Z Monitoring of Central Nervous Electrical Activity, External Approach (ICD-10-PCS; 2021-09-03)
PROC: 3E1M39Z Irrigation of Peritoneal Cavity using Dialysate, Percutaneous Approach (ICD-10-PCS; 2021-09-03)
PROC: 3E1M39Z Irrigation of Peritoneal Cavity using Dialysate, Percutaneous Approach (ICD-10-PCS; 2021-09-04)
PROC: 3E1M39Z Irrigation of Peritoneal Cavity using Dialysate, Percutaneous Approach (ICD-10-PCS; 2021-09-05)
PROC: 3E1M39Z Irrigation of Peritoneal Cavity using Dialysate, Percutaneous Approach (ICD-10-PCS; 2021-09-06)
PROC: 3E1M39Z Irrigation of Peritoneal Cavity using Dialysate, Percutaneous Approach (ICD-10-PCS; 2021-09-07)
PROC: 3E1M39Z Irrigation of Peritoneal Cavity using Dialysate, Percutaneous Approach (ICD-10-PCS; 2021-09-08)
PROC: 3E1M39Z Irrigation of Peritoneal Cavity using Dialysate, Percutaneous Approach (ICD-10-PCS; 2021-09-09)
DX: A41.9 Sepsis, unspecified organism (principal); R65.21 Severe sepsis with septic shock; N18.6 End stage renal disease; E43 Unspecified severe protein-calorie malnutrition; A48.0 Gas gangrene; M72.6 Necrotizing fasciitis; J95.821 Acute postprocedural respiratory failure; G92.9 Unspecified toxic encephalopathy; I12.0 Hypertensive chronic kidney disease with stage 5 chronic kidney disease or end stage renal disease; E87.1 Hypo-osmolality and hyponatremia; D62 Acute posthemorrhagic anemia; E11.52 Type 2 diabetes mellitus with diabetic peripheral angiopathy with gangrene; N25.81 Secondary hyperparathyroidism of renal origin; R47.01 Aphasia; L03.115 Cellulitis of right lower limb; M86.8X7 Other osteomyelitis, ankle and foot; I82.432 Acute embolism and thrombosis of left popliteal vein; E11.69 Type 2 diabetes mellitus with other specified complication; D63.8 Anemia in other chronic diseases classified elsewhere; E11.22 Type 2 diabetes mellitus with diabetic chronic kidney disease; K21.9 Gastro-esophageal reflux disease without esophagitis; Z20.822 Contact with and (suspected) exposure to COVID-19; E11.65 Type 2 diabetes mellitus with hyperglycemia; E03.9 Hypothyroidism, unspecified; E83.51 Hypocalcemia; Z79.4 Long term (current) use of insulin; Z82.49 Family history of ischemic heart disease and other diseases of the circulatory system; Z99.2 Dependence on renal dialysis; Z74.01 Bed confinement status; Z86.718 Personal history of other venous thrombosis and embolism; Z86.73 Personal history of transient ischemic attack (TIA), and cerebral infarction without residual deficits; Z89.429 Acquired absence of other toe(s), unspecified side; Z79.899 Other long term (current) drug therapy; Z88.0 Allergy status to penicillin
CPT/HCPCS: 31500; 36415; 36600; 70551; 71045; 73630; 75635; 76937; 80048; 80053; 80061; 80202; 82010; 82140; 82310; 82330; 82375; 82550; 82553; 82607; 82746; 82805; 82962; 83036; 83540; 83550; 83605; 83735; 84100; 84132; 84145; 84439; 84443; 84478; 84484; 85014; 85018; 85025; 85651; 86140; 86850; 86900; 86920; 87070; 87075; 87077; 87186; 87426; 88305; 88311; 92523; 92610; 93005; 93880; 93970; 94002; 94003; 95816; 97110; 97162; 97165; 97530; 99291; A6261; C1725; C1893; J0610; J0692; J0885; J1100; J1170; J1650; J1815; J2060; J2185; J2250; J2405; J2704; J2710; J3010; J3370; J3480; J3490; J7030; J7040; J7060; P9016; P9041; Q9967